=== PATIENT | male | born 1955 | race Caucasian/White ===

== ENCOUNTER 2017-12-17 09:02 | Emergency (ER) | payer MEDICARE ==
[2017-12-17] MEDS ORDERED: Lidocaine 1% (PF) 30 ML VIAL ONE (09:28)
[2017-12-17] MEDS ORDERED: Adacel (T-DAP) 0.5 ML VIAL ONE (09:28)
[2017-12-17] MEDS ORDERED: Bacitracin Zinc 1 Packet ONE (09:57)
[2017-12-17] MEDS ORDERED: Cephalexin 250 MG CAP ONE (09:57)
--- NOTE | 2017-12-17 10:18 | RAD ---
LEFT FOOT 3 VIEWS: Date: 12/17/17 HISTORY: Injury, left foot pain. FINDINGS/IMPRESSION: There is an avulsion fracture involving the medial aspect of the base of the proximal phalanx of the left great toe. Degenerative changes are present in the ankle joint. POS: MAC
[2017-12-17] MEDS ORDERED: HYDROcodone/Acetaminophen 7.5/325 mg Tablet ONE (10:25)
== END 2017-12-17 10:51 | disposition home or self-care (01) ==
LOC: ERS 09:02
DX: S92.512A Displaced fracture of proximal phalanx of left lesser toe(s), initial encounter for closed fracture (principal); S91.312A Laceration without foreign body, left foot, initial encounter; Z79.899 Other long term (current) drug therapy; W01.0XXA Fall on same level from slipping, tripping and stumbling without subsequent striking against object, initial encounter
CPT/HCPCS: 12002; 90471; 90715; J2001

== ENCOUNTER 2020-05-10 11:19 | Outpatient (CLI) | payer MEDICARE ==
[2020-05-10 19:46] LABS: SARS-CoV-2 PCR by NAA Not Detected (NotDetected)
== END 2020-05-10 11:20 | disposition home or self-care (01) ==
LOC: LABBT 11:19
PROVIDERS: ATTEND Internal Medicine
DX: Z12.11 Encounter for screening for malignant neoplasm of colon (principal); K92.1 Melena; Z20.822 Contact with and (suspected) exposure to COVID-19
CPT/HCPCS: U0003; U0005; 87635

== ENCOUNTER 2020-05-15 06:46 | Day surgery (SDC) | payer MEDICARE ==
[2020-05-12 10:34] VITALS: BMI 35.4
[2020-05-15] MEDS ORDERED: Lidocaine 1% PF 5 ML VIAL ONE (08:32)
[2020-05-15] MEDS ORDERED: PROPOFOL 200 MG/20 ML VIAL ONE (08:32)
== END 2020-05-15 10:20 | disposition home or self-care (01) ==
LOC: SDC 06:46
PROVIDERS: ATTEND Internal Medicine
PROC: 0DBL8ZX Excision of Transverse Colon, Via Natural or Artificial Opening Endoscopic, Diagnostic (ICD-10-PCS; principal; 2020-05-15)
DX: D12.3 Benign neoplasm of transverse colon (principal); K57.31 Diverticulosis of large intestine without perforation or abscess with bleeding; K64.8 Other hemorrhoids; K64.4 Residual hemorrhoidal skin tags; J44.9 Chronic obstructive pulmonary disease, unspecified; I25.10 Atherosclerotic heart disease of native coronary artery without angina pectoris; E78.00 Pure hypercholesterolemia, unspecified; I10 Essential (primary) hypertension; M19.90 Unspecified osteoarthritis, unspecified site; Z87.891 Personal history of nicotine dependence; Z79.02 Long term (current) use of antithrombotics/antiplatelets; Z79.82 Long term (current) use of aspirin; Z79.899 Other long term (current) drug therapy; Z95.5 Presence of coronary angioplasty implant and graft
CPT/HCPCS: 88305; J2704

== ENCOUNTER 2022-03-20 09:30 | Day surgery (SDC) | payer MEDICARE ==
[2022-03-19 13:04] VITALS: BMI 36.6
[2022-03-20] MEDS ORDERED: Heparin 10,000 UNITS/ 10 ML VIAL ONE (10:33)
[2022-03-20] MEDS ORDERED: Nitroglycerin 100MG/250ML BOT 250 ML ONE (10:34)
[2022-03-20] MEDS ORDERED: Lidocaine 1% (PF) 30 ML VIAL ONE (10:34)
[2022-03-20] MEDS ORDERED: Adenosine 6 MG/2 ML VIAL ONE (10:36)
[2022-03-20] MEDS ORDERED: Verapamil 5 MG/2 ML VIAL ONE (10:48)
[2022-03-20] MEDS ORDERED: Lidocaine 1% PF 5 ML VIAL ONE (11:39)
[2022-03-20] MEDS ORDERED: FENTANYL 50 MCG/ML 1 ML VIAL ONE (11:40)
[2022-03-20] MEDS ORDERED: Midazolam HCl 2 mg/2 ml Vial ONE (11:40)
== END 2022-03-20 15:31 | disposition home or self-care (01) ==
LOC: SDC 09:30
PROVIDERS: ATTEND Internal Medicine Cardiovascular Disease
PROC: 4A023N7 Measurement of Cardiac Sampling and Pressure, Left Heart, Percutaneous Approach (ICD-10-PCS; principal; 2022-03-20)
PROC: B2111ZZ Fluoroscopy of Multiple Coronary Arteries using Low Osmolar Contrast (ICD-10-PCS; 2022-03-20)
DX: I25.10 Atherosclerotic heart disease of native coronary artery without angina pectoris (principal); T82.855A Stenosis of coronary artery stent, initial encounter; I47.20 Ventricular tachycardia, unspecified; I10 Essential (primary) hypertension; M19.90 Unspecified osteoarthritis, unspecified site; J44.9 Chronic obstructive pulmonary disease, unspecified; E78.5 Hyperlipidemia, unspecified; E66.9 Obesity, unspecified; Z68.36 Body mass index [BMI] 36.0-36.9, adult; Z87.891 Personal history of nicotine dependence; Z79.02 Long term (current) use of antithrombotics/antiplatelets; Z79.82 Long term (current) use of aspirin; Z79.899 Other long term (current) drug therapy; Y71.3 Surgical instruments, materials and cardiovascular devices (including sutures) associated with adverse incidents
CPT/HCPCS: 93458; 99152; C1769; C1894; J0153; J1644; J2001; J2250; J3010